=== PATIENT | male | born 1960 | race Caucasian/White ===

== ENCOUNTER 2021-02-01 12:56 | Outpatient (CLI) | payer BC, SELFPAY ==
--- NOTE | ~2021-02-01 | MR_ITS ---
EXAMINATION: MR shoulder LT wo con DATE: 02/01/2021 13:57 INDICATION: Left shoulder pain, decreased range of motion and numbness radiating down the left arm. TECHNIQUE: Magnetic resonance imaging (MRI) of the left shoulder was performed without intravenous co ntrast. Sequences included axial PD-weighted FS FSE, coronal oblique PD-weighted FS FSE, coronal obli que T2-weighted FS FSE, sagittal PD-weighted FS FSE, and sagittal T1-weighted SE. COMPARISON: None. FINDINGS: Coracoacromial arch: The acromion undersurface is curved in morphology (type II). The coracoacromial ligament is normal. M ild acromioclavicular osteoarthritis. Rotator cuff: Mild subscapularis tendinopathy with full-thickness tear along the superior facet footplate which colt sures 12 mm both AP and medial to lateral. There is a further 14 mm medial retraction of the articula r side of the tendon. Mild infraspinatus tendinopathy without discrete tear. The teres minor tendon i s normal. Mild tendinopathy without discrete tear at the cephalad aspect of the distal subscapularis tendon. There is mild medial retraction of the supraspinatus muscle belly resulting in a mildly decre ased cross-sectional area of the muscle belly at the level of the lateral side of the supraspinatus f nam but without evident fatty atrophy. Biceps tendon, glenoid labrum and glenohumeral cartilage: Long head of the biceps tendon is normal. Glenoid labrum is normal. Glenohumeral cartilage is normal. Fluid: Small amount of fluid in the subacromial/subdeltoid bursa likely representing fluid decompressing fro m the glenohumeral joint space through the full-thickness rotator cuff tear. No loose osteochondral b odies. Bones: Normal marrow signal with no edema, fracture or abnormal marrow replacing process. Mild to moderate c ystic change at the greater tuberosity greatest at the middle facet. IMPRESSION: 1. 12 x 12 mm full-thickness tear at the distal supraspinatus tendon. Reviewed, dictated and finalized at location B. [facility]
== END 2021-02-01 12:57 | disposition home or self-care (01) ==
LOC: ANHIMG 13:06
PROVIDERS: PCP Family Medicine; Visit Provider Orthopaedic Surgery
DX: S43.432A Superior glenoid labrum lesion of left shoulder, initial encounter (principal); X58.XXXA Exposure to other specified factors, initial encounter
CPT/HCPCS: 73221